=== PATIENT | male | born 1995 | race Caucasian/White ===

== ENCOUNTER 2020-08-17 09:47 | Emergency (ER) | payer OTHER ==
[~2020-08-17] VITALS: Ht 180.3 cm; Wt 99.7 kg
[2020-08-17] MEDS ORDERED: methocarbamoL 750 MG TAB PO ONE (11:05)
--- NOTE | 2020-08-17 12:08 | REP ---
INDICATION: back pain 1 year. worse on L into L thigh. COMPARISON: None. TECHNIQUE: Axial noncontrast images of the thoracic spine with coronal and sagittal reformations. FINDINGS: Thoracic vertebral bodies are intact and without acute fracture/compression injury or subluxation. Alignment and kyphosis maintained. Disc spaces are normal. Spinal canal is patent and normal. Posterior elements and spinous processes are intact. Paravertebral soft tissues are normal. IMPRESSION: Normal thoracic spine CT. No evidence for acute pathology or trauma/injury. <Electronically signed by Matthias Ames > 08/17/20 [id number]
--- NOTE | 2020-08-17 12:11 | REP ---
INDICATION: back pain 1 year. worse on L into L thigh. COMPARISON: None. TECHNIQUE: Axial noncontrast images of the lumbosacral spine from mid T12 through mid sacrum with coronal and sagittal reformations. This CT examination was performed using the following dose reduction techniques: Automated exposure control, adjustment of mA and/or kv according to the patient's size, and use of iterative reconstruction technique. FINDINGS: Alignment and lordosis maintained. Vertebral bodies are intact. Posterior elements and spinous processes are intact. There is no evidence for acute fracture/compression injury or subluxation. The spinal canal is patent. The paravertebral soft tissues are normal. Very subtle disc bulge at L5-S1 along with very subtle canal stenosis at L4-5 and L5-S1 cannot be excluded. IMPRESSION: 1. Essentially normal lumbosacral spine CT. 2. Cannot exclude subtle changes at the L4-5 and L5-S1 levels. Consider outpatient MRI for further investigation if the patient remains symptomatic. <Electronically signed by Matthias Ames > 08/17/20 [id number]
[2020-08-17] MEDS ORDERED: METH-1165 PO (12:20)
[2020-08-17 12:29] VITALS: BP 129/73
== END 2020-08-17 12:29 | disposition home or self-care (01) ==
LOC: M ED 09:47
DX: M54.5 Low back pain (principal); I10 Essential (primary) hypertension

== ENCOUNTER → 2021-12-29 | Outpatient (REF) | payer OTHER ==
[~2021-12-29] MED LIST: METH-1165 PO
[2021-12-30 13:28] LABS: APPEARANCE, URINE MANUAL CLOUDY (CLEAR); BILIRUBIN, URINE MANUAL NEGATIVE (NEGATIVE); BLOOD URINE MANUAL NEGATIVE (NEGATIVE); COLOR, URINE MANUAL YELLOW (YELLOW); GLUCOSE, URINE (UA) MANUAL NEGATIVE (NEGATIVE); KETONE, URINE MANUAL NEGATIVE (NEGATIVE); LEUKOCYTE ESTERASE, URINE MAN NEGATIVE (NEGATIVE); NITRITE, URINE MANUAL NEGATIVE (NEGATIVE); PH,URINE MAN 5.5 UNITS (5.0 - 7.0); PROTEIN, URINE MANUAL NEGATIVE (NEGATIVE); UROBILINOGEN, URINE MANUAL NORMAL (NORMAL)
[2021-12-30 13:59] LABS: RBC, URINE 0-1 /hpf (0-3); SQUAMOUS EPITHELIAL CELL URINE SMALL AMOUNT /hpf (SMALL AMT); WBC, URINE 0-1 /hpf (0-3)
[2021-12-30 14:00] LABS: AMORPHOUS SEDIMENT, URINE LARGE AMOUNT (NEGATIVE); BACTERIA, URINE SMALL AMOUNT; HYALINE CAST, URINE NONE SEEN /lpf (0-1)
== END ==
LOC: M LAB REF 12:20
PROVIDERS: ATTEND Nurse Practitioner Family
DX: R35.0 Frequency of micturition (principal)

== ENCOUNTER → 2022-01-07 | Outpatient (REF) | payer OTHER ==
[2022-01-07 12:28] LABS: BASO # 0.1 10^3/uL (0.0-0.2); BASO % 0.5 % (0.0-1.0); EOS # 0.5 10^3/uL (0.0-0.5); HEMATOCRIT 42.8 % (42.0-52.0); LYMPH # 2.6 10^3/uL (1.5-5.0); LYMPH % 28.9 % (24.0-44.0); MEAN CORPUSCULAR HEMOGLOBIN 29.5 pg (27.0-33.0); MEAN CORPUSCULAR HGB CONC 32.7 g/dl (32.0-36.5); MEAN CORPUSCULAR VOLUME 90.3 fl (80.0-96.0); MONO # 0.7 10^3/uL (0.0-0.8); NEUTROPHILS # 5.2 10^3/uL (1.5-8.5); NEUTROPHILS % 56.7 % (36.0-66.0); PLATELET COUNT, AUTOMATED 201 10^3/uL (150-450); RED BLOOD COUNT 4.74 10^6/uL (4.30-6.10); WHITE BLOOD COUNT 9.1 10^3/uL (4.0-10.0)
[2022-01-07 13:49] LABS: ALT/SGPT 96 U/L (7.0-40); BLOOD UREA NITROGEN 14 MG/DL (9-23); CALCIUM LEVEL 11.6 MG/DL (8.5-10.1); CARBON DIOXIDE LEVEL 28 MMOL/L (20-31); CHLORIDE LEVEL 102 MMOL/L (98-107); CHOLESTEROL LEVEL 191 MG/DL (<200); CHOLESTEROL RISK RATIO 3.53 (<5); CREATININE FOR GFR 1.03 MG/DL (0.70-1.30); GLOMERULAR FILTRATION RATE > 60.0 (>60); GLUCOSE, FASTING 92 MG/DL (60-100); LDL CHOLESTEROL 110.6 MG/DL (<100); NON-HDL-C 137 MG/DL; POTASSIUM SERUM 4.3 MMOL/L (3.5-5.1); SODIUM LEVEL 141 MMOL/L (136-145); THYROID STIMULATING HORMONE 2.102 uIU/ML (0.55-4.78); TOTAL 25(OH) VITAMIN D 22.7 NG/ML (20.0-100.0); TOTAL PROTEIN 6.9 G/DL (5.7-8.2); TRIGLYCERIDES LEVEL 132 MG/DL (<150)
== END ==
LOC: M LAB REF 11:41
PROVIDERS: ATTEND Nurse Practitioner Family
DX: Z13.228 Encounter for screening for other metabolic disorders (principal)

== ENCOUNTER → 2022-01-12 | Outpatient (REF) | payer OTHER ==
[2022-01-13 15:24] LABS: GC DNA AMPLIFICATION NEGATIVE (NEGATIVE)
== END ==
LOC: M LAB REF 12:31
PROVIDERS: ATTEND Nurse Practitioner Family
DX: R35.0 Frequency of micturition (principal)

== ENCOUNTER 2022-01-28 15:19 | Outpatient (RCR) | payer OTHER | END 2022-02-20 | LOC: M PT 15:19 | PROVIDERS: ATTEND Nurse Practitioner Family | DX: M54.50 Low back pain, unspecified (principal) ==